=== PATIENT | female | born 1990 | race Asian ===

== ENCOUNTER 2018-03-25 15:56 | Day surgery (SDC) | payer OTHER ==
[~2018-03-25 15:56] MED LIST: HYDR-971 PO; Ibuprofen PO; PNV1TABL34 PO
[2018-03-25] MEDS ORDERED: fentaNYL PF VIAL 100 MCG/2 ML VIAL ONE (17:54)
[2018-03-25] MEDS ORDERED: PROPOFOL 20 ML IV ONE (17:55)
--- NOTE | 2018-03-25 18:07 | PDOC ---
BRIEF OPERATIVE NOTE Date: Mar 25, 2018 Pre-Op Diagnosis Incomplete ab Post-Op Diagnosis Same Procedure Performed Suction D and C Surgeon Kristin Web Services Architect None Anesthesia Type: General Specimens Obtained POC Complications None DANAE DIAZ MD Mar 25, 2018 18:07
[2018-03-25] MEDS ORDERED: HYDR-971 PO (18:11)
[2018-03-25] MEDS ORDERED: DOXY100C14 PO (18:11)
[2018-03-25] MEDS ORDERED: IBUP200T44 PO (18:11)
[2018-03-25] MEDS ORDERED: METH0.2T36 PO (18:11)
[2018-03-25] MEDS ORDERED: OXYTOCIN 10 UNIT/ML VIAL. ONE (18:18)
[2018-03-25] MEDS ORDERED: ONDANSETRON PF 4 MG/2 ML VIAL. ONE (18:32)
[2018-03-25] MEDS ORDERED: DEXAMETHASONE SOD PHOS 20 MG/5 ML VIAL. ONE (18:32)
[2018-03-25] MEDS ORDERED: SEVOFLURANE 16 TO 30 MINUTES. IH ONE (18:33)
[2018-03-25 19:26] VITALS: BP 110/72
[2018-03-25] MEDS ORDERED: IV RINGERS,LACTATED 1000ML 1,000 ML IV SCH (19:42)
[2018-03-25] MEDS ORDERED: MIDAZOLAM HCL/PF 2 MG/2 ML VIAL. IV PRN (19:45)
--- NOTE | 2018-03-29 15:07 | PATHOLOGY ---
[facility] Accession Number: [id number] . 01 Material submitted: . PRODUCTS OF CONCEPTION . 01 Clinical history: . Incomplete AB . 02 Diagnosis: Uterine contents, suction D and C: - Products of conception, comprised of few immature chorionic villi showing mild hydropic degenerative changes, and predominant segments of decidual tissue and secretory endometrium showing focal hemorrhage, necrosis, and acute inflammation. . (JPM:mml; 03/29/18) QL/03/29/2018 . 02 Electronically signed: . Mike Barrera MD, Pathologist NPI- [id number] . 01 Gross description: . The specimen is received in formalin, labeled "Srinath, Cami, products of conception", are multiple irregular fragments of jones-white rubbery tissue admixed with abundant blood clot measuring 8.0 x 6.4 x 1.5 cm in aggregate. No discrete spongy placental parenchyma, parts or grapelike cystic structures are identified. Platform Material Handling Supervisor tissue is submitted in A1-A3. ([facility]; 03/26/2018) [facility] . 02 Pathologist provided ICD-10: O02.89 . 02 CPT . 427604 Specimen Comment: A courtesy copy of this report has been sent to Specimen Comment: [phone], . Specimen Comment: Report sent to / DR DARNELL Performed at: 01 [facility] [address], [place] [id number] MD Guilherme Rosario MD Phone: [phone] Performed at: 02 [facility] [address], [place] [id number] MD Mike Barrera MD Phone: [phone]
--- NOTE | 2018-04-28 08:38 | OP ---
DATE OF SURGERY: 03/25/2018 PREOPERATIVE DIAGNOSIS: Incomplete . POSTOPERATIVE DIAGNOSIS: Incomplete . PROCEDURE: Suction D and C. SURGEON: Nitin Foster M.D. ELECTROENCEPHALOGRAM TECHNOLOGIST: None. ANESTHESIA: General. ESTIMATED BLOOD LOSS: 100 mL. SPECIMENS: Products of conception. FLUIDS: Crystalloids. COMPLICATIONS: None. CONDITION: Stable. DESCRIPTION OF PROCEDURE: After risks, benefits, indications, alternatives discussed in detail with the patient, the patient was brought to OR theater, placed in the dorsal lithotomy position in Liban stirrups. After adequate general anesthesia, the patient was prepped and draped in usual sterile manner. Posterior weighted speculum was placed in the vaginal vault. Cervix was grasped with single tooth tenaculum. Cervix was dilated up to receive a #10 curved suction cannula. Gentle suction curettage was then performed. Products of conception seen going through the clear tubing. A gentle suction curettage was performed in all quadrants. The suction cannula was removed. Sharp curettage was then performed. The usual cry was heard. Suction cannula was again placed. No further products of conception were seen coming through the clear tubing. The clear tubing was cleared with normal saline. A single tooth tenaculum was removed. Puncture sites were hemostatic. A bimanual exam was performed. Uterus was firmed, normal size and procedure was terminated. Any tissue or blood was wiped free of the vaginal vaults. A posterior weighted speculum was removed. Sponge, needle and instrument counts were correct x 2 per nursing staff. The patient went to postop anesthesia recovery in stable condition. NITIN FOSTER MD DR: BATOOL/bridget JOB#: [id number] / [id number]
== END 2018-03-25 19:32 | disposition home or self-care (01) ==
LOC: SURG 15:56
PROVIDERS: ATTEND Specialist
DX: O03.4 Incomplete spontaneous abortion without complication (principal)
CPT/HCPCS: 36415; 59812; 86850; 86900; 86901; 88305; A7015; C1892; J1100; J2405; J2590; J2704; J3010

== ENCOUNTER 2019-04-21 13:13 | Observation (INO) | payer OTHER ==
[~2019-04-21 13:13] MED LIST changes: +DOXY100C14 PO; +HYDR-3164 PO; -HYDR-971 PO; +IBUP200T44 PO; +METH0.2T36 PO
== END 2019-04-21 15:13 | disposition home or self-care (01) ==
LOC: 3 SO LND 13:13
PROVIDERS: ADMIT Specialist; ATTEND Specialist
DX: O48.0 Post-term pregnancy (principal); Z3A.40 40 weeks gestation of pregnancy
CPT/HCPCS: G0378; G0379; 59025

== ENCOUNTER 2019-04-26 06:02 | Inpatient (IN) | payer OTHER ==
[~2019-04-26] VITALS: Ht 154.9 cm; Wt 70.3 kg
[2019-04-26] MEDS ORDERED: ONDANSETRON PF 4 MG/2 ML VIAL. IV PRN (06:15)
[2019-04-26] MEDS ORDERED: IV RINGERS,LACTATED 1000ML 1,000 ML IV SCH (06:15)
[2019-04-26] MEDS ORDERED: ACETAMINOPHEN 325 MG TABLET. PO PRN ×2 (06:15→08:15)
[2019-04-26] MEDS ORDERED: MAG HYDROX/ALUMINUM HYD/SIMETH 30 ML ORAL.SUSP PO PRN ×2 (06:15→08:15)
[2019-04-26 06:44] LABS: BILIRUBIN,URINE NEGATIVE (NEG); CLARITY,URINE CLEAR; COLOR,URINE YELLOW; NITRITE,URINE NEGATIVE (NEG); PH,URINE 6.5; PROTEIN,URINE NEGATIVE (NEG-TRACE); UROBILINOGEN,URINE 0.2 mg/dL (0.2 mg/dL)
[2019-04-26] MEDS ORDERED: fentaNYL PF VIAL 100 MCG/2 ML VIAL IV PRN (06:45)
[2019-04-26] MEDS ORDERED: BUTORPHANOL 2 MG/ML VIAL. IV PRN (06:45)
[2019-04-26] MEDS ORDERED: 0.9 % SODIUM CHLORIDE 10 ML DISP.SYRIN. IV PRN ×2 (06:45→08:15)
[2019-04-26] MEDS ORDERED: OXYTOCIN 30 UNIT/500 ML PREMIX 500 ML IV PRN ×3 (06:45→08:15)
[2019-04-26] MEDS ORDERED: TERBUTALINE 1 MG/ML VIAL. SQ PRN (06:45)
[2019-04-26] MEDS: IV RINGERS,LACTATED 1000ML 1,000 ML IV SCH ×3 (06:45→22:45)
[2019-04-26] MEDS ORDERED: IBUPROFEN 400 MG TABLET. PO PRN ×2 (06:45→08:15)
[2019-04-26] MEDS ORDERED: NALBUPHINE 10 MG/ML AMPUL. IV PRN (06:45)
[2019-04-26] MEDS ORDERED: LIDOCAINE 1% PF 30 ML VIAL. INJ PRN (06:45)
[2019-04-26 06:56] LABS: BASO # 0.1 x10^3/uL (0.0-0.2); BASO % 1 % (0-3); EOS # 0.2 x10^3/uL (0.0-0.7); EOS % 2 % (0-3); HEMATOCRIT 39.5 % (36.0-47.0); HEMOGLOBIN 13.1 g/dL (12.0-15.5); LYMPH # 1.7 x10^3/uL (1.0-4.8); LYMPH % 17 % (24-48); MEAN CORPUSCULAR HEMOGLOBIN 27 pg (25-35); MEAN CORPUSCULAR HGB CONC 33 g/dL (31-37); MEAN CORPUSCULAR VOLUME 82 fL (79-100); MONO # 0.8 x10^3/uL (0.0-1.1); MONO % 8 % (0-9); NEUT # 7.8 x10^3/uL (1.8-7.7); NEUT % 74 % (31-73); PLATELET COUNT 244 x10^3/uL (140-400); RED BLOOD COUNT 4.82 x10^6/uL (3.50-5.40); RED CELL DISTRIBUTION WIDTH 16.5 % (11.5-14.5); WHITE BLOOD COUNT 10.6 x10^3/uL (4.0-11.0)
[2019-04-26] MEDS ORDERED: OXYTOCIN PREMIX 30 UNIT/500 ML NS BAG. IV ONE (07:00)
[2019-04-26 07:18] LABS: SQUAMOUS EPITHELIAL CELL,UR MOD /LPF
[2019-04-26 07:19] LABS: BACTERIA,URINE 0 /HPF (0-FEW); RBC,URINE >40 /HPF (0-2); WBC,URINE 0 /HPF (0-4)
[2019-04-26] MEDS ORDERED: MMR per PROTOCOL. MC PRN (08:10)
[2019-04-26] MEDS ORDERED: MAGNESIUM HYDROXIDE 2,400 MG/30 ML ORAL.SUSP. PO PRN (08:15)
[2019-04-26] MEDS ORDERED: HYDROCORTISONE 1% TOPICAL OINTMENT 30GM TUBE. TP PRN (08:15)
[2019-04-26] MEDS ORDERED: ZOLPIDEM 5 MG TABLET. PO PRN (08:15)
[2019-04-26] MEDS ORDERED: BENZOCAINE 20% TOPICAL AEROSOL SPRAY 57GM CAN. TP PRN (08:15)
[2019-04-26] MEDS ORDERED: diphenhydrAMINE HCL 25 MG CAPSULE PO PRN (08:15)
[2019-04-26] MEDS ORDERED: PHENYLEPH/MINERAL OIL/PETROLAT RECTAL OINTMENT TUBE. RC PRN (08:15)
[2019-04-26] MEDS ORDERED: SIMETHICONE 80 MG TAB.CHEW PO PRN (08:15)
[2019-04-26 11:15] VITALS: BP 98/63
[2019-04-26 12:20] VITALS: BP 97/55
[2019-04-26 16:55] VITALS: BP 90/52
[2019-04-26] MEDS ORDERED: FERROUS SULFATE 325 MG TABLET. PO SCH (17:00)
[2019-04-26] MEDS: IBUPROFEN 400 MG TABLET. PO SCH ×2 (19:59→22:00)
[2019-04-26 20:14] VITALS: BP 104/55
[2019-04-27 04:00] VITALS: BP 85/50
[2019-04-27] MEDS: IBUPROFEN 400 MG TABLET. PO SCH ×2 (06:14→20:01)
[2019-04-27 07:41] VITALS: BP 102/66
[2019-04-27 14:27] VITALS: BP 95/61
--- NOTE | 2019-04-27 15:52 | PDOC ---
Provider Note Provider Note Doing well VSS Uterus NTTP FU in AM DANAE DAIZ MD Apr 27, 2019 15:52
[2019-04-27 19:00] VITALS: BP 108/59
[2019-04-27 22:10] VITALS: BP 107/70
[2019-04-28] MEDS: IBUPROFEN 400 MG TABLET. PO SCH (06:02)
[2019-04-28 06:05] VITALS: BP 106/73
--- NOTE | 2019-04-28 10:33 | PDOC3 ---
OB DISCHARGE SUMMARY DATE OF ADMISSION: 04/26/19 DATE OF DISCHARGE: 04/28/19 REASON FOR ADMISSION: Onset of labor PROCEDURES: Ultrasound INTRAPARTUM PROCEDURES: Spontanous Vag Deliv PROCEDURES: None OPERATIONS: None DISCHARGE DIAGNOSIS: Term Delivered DISCHARGE INFORMATION: Activity, Diet HOSPITAL COURSE Unremarkable CONDITION AT DISCHARGE Stable DANAE DIAZ MD Apr 28, 2019 10:32
[2019-04-28] MEDS ORDERED: NAPR-514 PO (10:35)
[2019-04-28] MEDS ORDERED: HYDR-3164 PO (10:35)
--- NOTE | 2019-04-28 10:44 | PDOC1 ---
OB - History Hx of Present Care: Good Care Ultrasounds: Normal mid trimester US Obstetrical Complications: None Medical Complications: None Past Family/Social History * Past Medical, Surgical, Family and Obstetric Histories reviewed from chart. Blood Type: B+ Rubella: Immune RPR/VDRL: Negative GBS Status: Unknown HBsAG: Negative OB - Chief Complaint & HPI Date of Admission: Date of Admission: Apr 26, 2019 at 06:02 Chief Complaint/History : 8 Para: 6 EDC: Apr 18, 2019 Admission Nurse Assessment Rev: Yes OB - Admission Exam Physical Exam Vitals: VS - Last 72 Hours, by Label Date Time Temp Pulse Resp B/P (MAP) Pulse Ox O2 Delivery O2 Flow Rate FiO2 04/28/19 06:05 97.5 74 20 106/73 (84) 96 Room Air 97.5 04/27/19 22:10 98.1 82 18 107/70 (82) 92 Room Air 98.1 04/27/19 19:00 97.4 79 16 108/59 (75) 97 Room Air 97.4 16 04/27/19 14:27 97.4 77 16 95/61 (72) 97 97.4 04/27/19 07:41 97.4 78 18 102/66 (78) 96 97.4 04/27/19 04:00 98.1 59 16 85/50 (62) 97 Room Air 98.1 04/26/19 20:14 98.0 78 16 104/55 (71) 97 Room Air 98.0 04/26/19 16:55 98.0 69 16 90/52 (65) 98 Room Air 98.0 04/26/19 12:20 98.2 62 18 97/55 (69) Room Air 98.2 04/26/19 11:15 98.2 68 18 98/63 (75) Room Air 98.2 HEENT: Normal, Nasal Mucosa Normal, Oropharynx Normal, Moist Membranes, Fontanelles Normal Heart: Regular Rate Lungs: Clear Reflexes: Normal Cervical Dilatation: 6cm Effacement: 0% Membranes: Ruptured Amniotic Fluid: Clear Heart Rate: Normal Accelerations: Accelerations Present Decelerations: No decelerations Short Term Variability: Present Penitentiary Variability: Moderate Contractions on Admission: < 5 Minutes Apart Intensity: Firm Assessment/Plan Assessment/Plan TIUP Labor [facility] DANAE DIAZ MD Apr 28, 2019 10:44
--- NOTE | 2019-04-28 10:46 | PDOC ---
VAGINAL DELIVERY DATE DATE: 04/28/19 TIME: 10:44 : Other (8) Para: 6 EDC: Apr 18, 2019 VAGINAL DELIVERY: VTX PLACENTA: Spontaneous SEX: Male WEIGHT 7/12 Nuchal Cord: No PAIN: Natural EPISIOTOMY: No EXTENSION: No EBL 300cc COMPLICATIONS None CONDITION Stable Signs of Intrauterine Infectio: None Shoulder Dystocia: No DIAGNOSIS DANAE Simeon MD Apr 28, 2019 10:46
[2019-04-28 12:20] VITALS: BP 107/74
== END 2019-04-28 16:00 | disposition home or self-care (01) | DRG 807 ==
LOC: OBSVTOIN 06:02 → 3 SO LND 06:02 → 3 NORTH 11:15 → UNDODISIN 11:15
PROVIDERS: ADMIT Specialist; ATTEND Specialist
PROC: 10E0XZZ Delivery of Products of Conception, External Approach (ICD-10-PCS; principal; 2019-04-28)
DX: O80 Encounter for full-term uncomplicated delivery (principal); Z37.0 Single live birth; Z3A.41 41 weeks gestation of pregnancy
CPT/HCPCS: 36415; 81001; 85025; 86592; 86850; 86900; 86901; J2590; G0378